=== PATIENT | male | born 1960 | race Caucasian/White ===

== ENCOUNTER 2020-11-08 22:19 | Emergency (ER) | payer BC ==
[~2020-11-08] VITALS: Ht 190.5 cm; Wt 127.3 kg
[2020-11-08 22:49] VITALS: BP 129/77
== END 2020-11-08 23:22 | disposition home or self-care (01) ==
LOC: M ED 22:19
DX: I83.893 Varicose veins of bilateral lower extremities with other complications (principal); F17.200 Nicotine dependence, unspecified, uncomplicated